=== PATIENT | female | born 1965 | race Caucasian/White ===

== ENCOUNTER 2016-11-08 12:55 | Outpatient (CLI) | payer OTHER | END 2016-11-08 12:56 | disposition home or self-care (01) | DX: Z11.1 Encounter for screening for respiratory tuberculosis (principal) ==

== ENCOUNTER 2016-11-27 10:15 | Outpatient (CLI) | payer OTHER | END 2016-11-27 10:16 | disposition home or self-care (01) | DX: N39.0 Urinary tract infection, site not specified (principal) ==

== ENCOUNTER 2017-08-22 09:04 | Outpatient (CLI) | payer SELFPAY | END 2017-08-22 09:05 | disposition EMS.NT | LOC: EMS 09:04 | PROVIDERS: ATTEND Surgery | DX: R51 Headache (principal) ==

== ENCOUNTER 2023-07-05 07:43 | Outpatient (CLI) | payer BC ==
[2023-07-06 07:10] LABS: DHEA-SULFATE 37.3 ug/dL (29.4-220.5); ESTRADIOL 71.9 pg/mL (.)
[2023-07-07 13:11] LABS: FREE TESTOSTERONE(DIRECT) 1.2 pg/mL (0.0-4.2); TESTOSTERONE <3 ng/dL (4-50)
== END 2023-07-05 07:44 | disposition home or self-care (01) ==
LOC: LAB 07:43
PROVIDERS: ATTEND Nurse Practitioner
DX: Z51.81 Encounter for therapeutic drug level monitoring (principal); Z79.890 Hormone replacement therapy
CPT/HCPCS: 82627; 82670; 84144; 84402; 84403

== ENCOUNTER 2023-07-17 15:49 | Outpatient (CLI) | payer BC ==
--- NOTE | 2023-07-17 20:47 | Ultrasound Report ---
PROCEDURE: Pelvic w/Transvaginal INDICATIONS: 57-year-old female with postmenopausal bleeding, hormone replacement therapy, new intra uterine device TECHNIQUE: Transabdominal/transvaginal ultrasound of the pelvis was obtained. Endovaginal scanning wa s necessary due to incomplete visualization of the adnexal and endometrial structures by transabdomin al scanning. COMPARISON: None. FINDINGS: Uterine size: Uterus measures 6.9 x 2.7 x 3.9 cm, and is anteverted. Myometrium: The myometrium is heterogenous. Endometrium: The endometrium measures 4 mm in combined thickness. Intrauterine device noted. Probabl e IUD foramina and measures 1.2 cm noted in the lower uterine segment posteriorly new intrauterine de vice tip is 6 mm from the prior study Right ovary: The right ovary measures 1.7 x 0.9 x 0.8 cm. Calculated ovarian volume 0.6 cc. Left ovary: The left ovary measures 1.4 x 0.9 x 1.0 cm. Calculated ovarian volume 0.7 cc. Other: No pathologic free abdominal or pelvic fluid. IMPRESSION: Intrauterine device in good position. Small prior IUD remnant noted in the lower uterine segment Reviewed by: Florencio Arias MD on 07/17/2023 7:45 PM VIKKI Approved by: Florencio Arias MD on 07/17/2023 7:45 PM VIKKI Station ID: [id number]
== END 2023-07-17 15:50 | disposition home or self-care (01) ==
LOC: DI 15:49
PROVIDERS: ATTEND Nurse Practitioner
DX: N95.0 Postmenopausal bleeding (principal); Z79.890 Hormone replacement therapy; Z97.5 Presence of (intrauterine) contraceptive device

== ENCOUNTER 2024-04-30 08:05 | Outpatient (CLI) | payer BC ==
[2024-04-30 08:16] LABS: BASOPHILS % (AUTO) 0.9 %; EOSINOPHILS # (AUTO) 0.1 10^3/uL (0.0-0.7); HGB - HEMOGLOBIN 12.1 g/dL (12.0-16.0); LYMPHOCYTES # (AUTO) 1.6 10^3/uL (1.5-3.5); MEAN CORPUSCULAR HEMOGLOBIN 32.7 pg (27.0-31.0); MEAN CORPUSCULAR HGB CONC 33.6 g/dL (32.0-36.0); MEAN CORPUSCULAR VOLUME 97.3 fL (81.0-99.0); MEAN PLATELET VOLUME 10.8 fL (7.9-10.8); MONOCYTES # (AUTO) 0.5 10^3/uL (0.0-1.0); MONOCYTES % (AUTO) 10.9 %; NEUTROPHILS # (AUTO) 2.3 10^3/uL (1.5-6.6); PLT - PLATELET COUNT 303 10^3/uL (130-450); RED CELL DISTRIBUTION WIDTH 13.9 % (12.0-15.0); WHITE BLOOD COUNT 4.5 x10^3/uL (4.8-10.8)
[2024-04-30 08:32] LABS: % IRON SATURATION 46 % (20-50); ALBUMIN 4.6 g/dL (3.2-5.5); ALBUMIN/GLOBULIN RATIO 1.8 (1.0-2.2); ALKALINE PHOSPHATASE 50 IU/L (42-121); ALT ALANINE AMINOTRANSFERASE 18 IU/L (10-60); AST ASPARTATE AMINOTRANSFERASE 18 IU/L (10-42); BILIRUBIN,TOTAL 0.7 mg/dL (0.2-1.0); BUN - BLOOD UREA NITROGEN 10 mg/dL (6-20); CALCIUM 9.6 mg/dL (8.5-10.3); CARBON DIOXIDE - CO2 29 mmol/L (21-32); CHLORIDE 98 mmol/L (101-111); CHOL/HDL RATIO 2.6 (<4.4); CHOLESTEROL 232 mg/dL; CREATININE 0.6 mg/dL (0.6-1.3); CRP - C-REACTIVE PROTEIN < 0.5 mg/dL (<0.5); GFR - MDRD 102 (>89); GLUCOSE 106 mg/dL (74-104); HDL CHOLESTEROL 89 mg/dL; IRON 168 ug/dL (50-212); LDL CHOLESTEROL,CALCULATED 127 mg/dL; LDL/HDL RATIO 1.4 (<4.4); POTASSIUM 3.6 mmol/L (3.5-4.5); SODIUM 132 mmol/L (135-145); TOTAL IRON BINDING CAPACITY 363 ug/dL (250-450); TOTAL PROTEIN 7.1 g/dL (6.4-8.9); TRANSFERRIN 259 mg/dL (203-362); TRIGLYCERIDES 81 mg/dL (48-352); VLDL CHOLESTEROL 16 mg/dL
[2024-04-30 08:48] LABS: THYROID STIMULATING HORMONE 2.39 uIU/mL (0.34-5.60)
[2024-04-30 08:53] LABS: FERRITIN 22.7 ng/mL (11.0-306.8)
[2024-04-30 09:30] LABS: RHEUMATOID FACTOR NEGATIVE (Negative)
[2024-04-30 10:19] LABS: ESTIMATED AVERAGE GLUCOSE 100 mg/dL (70-100); HEMOGLOBIN A1c% 5.1 % (4.27-6.07)
== END 2024-04-30 08:06 | disposition home or self-care (01) ==
LOC: LAB 08:05
PROVIDERS: ATTEND Internal Medicine
DX: R53.83 Other fatigue (principal); Z13.220 Encounter for screening for lipoid disorders; R68.89 Other general symptoms and signs; M25.60 Stiffness of unspecified joint, not elsewhere classified; U09.9 Post COVID-19 condition, unspecified
CPT/HCPCS: 36415; 80053; 80061; 82728; 83036; 83540; 83721; 84443; 84466; 85025; 86140; 86430

== ENCOUNTER 2024-05-30 08:39 | Day surgery (SDC) | payer BC ==
[2024-05-30] MEDS: LACTATED RINGERS 1,000 ML IV ONE ×2 (08:56→10:16)
[2024-05-30] MEDS ORDERED: PROPOFOL 500 MG/50 ML 500 MG/50 ML VIAL ONE (09:27)
[2024-05-30] MEDS ORDERED: LIDOCAINE-MPF 2% 5 ML VIAL ONE (09:28)
--- NOTE | 2024-05-30 09:34 | ANESTHESIA ---
Pre-Anesthesia VS, & Labs - Diagnosis DIAGNOSIS CA SCREENING - Procedure COLONOSCOPY Vital Signs: Temp Pulse Resp BP Pulse Ox O2 Flow Rate 36.6 C 56 L 14 106/60 100 05/30/24 09:00 05/30/24 09:00 05/30/24 09:00 05/30/24 09:00 05/30/24 09:00 Height: 5 ft 3 in Weight (kg): 60 kg Body Mass Index: 23.4 BMI Classification: Normal - NPO Other (BOWEL PREP COMPLETED) - Is Patient ?: No Home Medications and Allergies Home Medications: Ambulatory Orders Omeprazole 20 mg PO DAILY 05/29/24 Omeprazole 20 mg PO DAILY 05/29/24 Anes History & Medical History - Anesthetic History Anesthesia Complications: reports: No previous complications Family history of Anesthesia Complications: Denies Family history of Malignant Hyperthermia: Denies - Medical History Cardiovascular: reports: Other (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) Pulmonary: reports: Other (LONG COVID) Gastrointestinal: reports: GERD Urinary: reports: None Neuro: reports: Migraines (APHASIC; A FEW TIMES A YEAR; STRESS INDUCED) Musculoskeletal: reports: Osteoarthritis, Other Endocrine/Autoimmune: reports: None Blood Disorders: reports: None Skin: reports: None Smoking Status: Never smoker Psychosocial: reports: No issues indicated History of Cancer?: Yes (BASAL CELL CARCINOMA; RESOLVED; 35 YEARS AGO) - Surgical History Gynecologic: reports: section Results - EKG Results EKG Comparison: Reviewed EKG, Normal EKG Exam General: Alert, Oriented x3, Cooperative, No acute distress Dental: WNL Mouth Openin Fingerbreadth Neck Mobility: Reduced Mallampati classification: III Thyromental Distance: 4-6 cm Respiratory: Lungs clear, Normal breath sounds, No respiratory distress, No accessory muscle use Cardiovascular: Regular rate, Normal S1, Normal S2, No murmurs Mental/Cognitive Status: Alert/Oriented X3, Normal for patient Cognitive Status: Within normal limits Plan Anesthesia Type: General Consent for Procedure(s) Verified and Reviewed: Yes Code Status: Attempt Resuscitation ASA classification: 3-Severe systemic disease Is this case an emergency?: No
[2024-05-30 10:45] VITALS: BP 107/61; O2SAT 100
--- NOTE | 2024-05-30 11:28 | ANESTHESIA POST OP EVALUATION ---
Anesthesia Post Eval - Post Anesthesia Eval Vitals: Last Vital Signs Temp 36.3 C L 05/30/24 10:37 Pulse 68 05/30/24 10:37 Resp 16 05/30/24 10:37 BP 107/61 05/30/24 10:37 Pulse Ox 100 05/30/24 10:37 O2 Flow Rate CV Function Including HR & BP: Stable Pain Control: Satisfactory Nausea & Vomiting: Negative Mental Status: Baseline Respiratory Status: Airway Patent Hydration Status: Satisfactory Anesthesia Complications: None
== END 2024-05-30 08:40 | disposition home or self-care (01) ==
LOC: SDS 08:39
PROVIDERS: ATTEND Surgery
DX: Z12.11 Encounter for screening for malignant neoplasm of colon (principal); K64.9 Unspecified hemorrhoids; G90.A Postural orthostatic tachycardia syndrome [POTS]; U09.9 Post COVID-19 condition, unspecified
CPT/HCPCS: 45378; J7120